=== PATIENT | male | born 1930 | race Caucasian/White ===

== ENCOUNTER 2017-10-29 01:51 | Inpatient (IN) | payer MEDICARE, OTHER ==
[2017-10-29] VITALS (18 sets, daily range): BP systolic 130–159; BP diastolic 83–108; PULSE 89–108; RESP 20–44; TEMP 96.7–98.5; O2SAT 91–100
[~2017-10-29] VITALS: Ht 182.9 cm; Wt 54.1 kg
[~2017-10-29 01:51] MED LIST: COLA100C5 PO; ESCI10TA PO; FAMO20TA2 PO; FLOR250C PO; IBUP200T47 PO; METO1TAB9 PO; NITR1SUB3 SL; OXYB5TAB8 PO; PERC5TAB12 PO; QUET1TAB7 PO; TAMS0.4C4 PO; TAMS5CAP PO; TYLE325T PO
[2017-10-29] MEDS ORDERED: RESP: ALBUTEROL 2.5 MG/IPRATROPIUM 0.5 MG NEB (SCH) INH ONE (02:15)
[2017-10-29] MEDS ORDERED: SODIUM CHLORIDE 0.9% FLUSH 10 ML FLUSH IVF PRN (02:15)
[2017-10-29] MEDS ORDERED: FUROSEMIDE 40 MG/4 ML VIAL IV PUSH ONE ×2 (02:30→07:00)
[2017-10-29 02:35] LABS: AUTOMATED NEUTROPHIL # 12.4 TH/MM3 (1.8-7.7); BASOPHIL % 0.1 % (0.0-2.0); HEMATOCRIT 29.9 % (39.0-51.0); HEMOGLOBIN 9.6 GM/DL (13.0-17.0); LYMPH % 7.3 % (9.0-44.0); MEAN CELL VOLUME 93.7 FL (80.0-100.0); MEAN CORPUSCULAR HGB CONC 32.1 % (32.0-36.0); MEAN PLATELET VOLUME 8.2 FL (7.0-11.0); MONO % 4.4 % (0.0-8.0); MONOCYTE # 0.6 TH/MM3 (0-0.9); NEUT % 88.2 % (16.0-70.0); PLATELET COUNT 202 TH/MM3 (150-450); RED BLOOD COUNT 3.19 MIL/MM3 (4.50-5.90); RED CELL DISTRIBUTION WIDTH 14.6 % (11.6-17.2); WHITE BLOOD COUNT 14.1 TH/MM3 (4.0-11.0)
[2017-10-29 02:41] LABS: AMORPHOUS SEDIMENT, URINE RARE; BACTERIA, URINE MANY /hpf; BILIRUBIN, URINE NEG (NEG); BLOOD, URINE LARGE (NEG); GLUCOSE,URINE NEG (NEG); HYALINE CAST, URINE 9 /lpf (RARE); KETONE, URINE NEG (NEG); NITRITE,URINE NEG (NEG); SQUAMOUS EPITHELIAL CELL URINE 1 /hpf (0-5); URINE COLOR YELLOW (YELLW/STRAW); URINE LEUKOCYTE ESTERASE LARGE (NEG)
--- NOTE | 2017-10-29 02:43 | RADRPT ---
EXAM DATE/TIME: 10/29/2017 02:12 [place] COMPARISON: CHEST SINGLE AP, December 08, 2014, 3:15. INDICATIONS : Shortness of breath. MEDICAL HISTORY : Hypertension. Chronic obstructive pulmonary disease. SURGICAL HISTORY : Cardiac stent. ENCOUNTER: Initial ACUITY: 1 day PAIN SCORE: 0/10 LOCATION: Bilateral chest FINDINGS: The cardiac silhouette is enlarged in transverse diameter. There is baseline fibrotic change with dif fuse right-sided edema versus pneumonia. No pleural effusions are identified. CONCLUSION: 1. Diffuse right-sided edema versus pneumonia superimposed on baseline fibrosis. Leander Adams MD on October 29, 2017 at 2:40 Board Certified Radiologist. This report was verified electronically.
[2017-10-29] MEDS ORDERED: VANCOMYCIN INJ 200 ML IV ONE (02:45)
[2017-10-29] MEDS ORDERED: CEFEPIME INJ 1,000 MG in SODIUM CHLORIDE 0.9% INJ 100 ML IV ONE (02:45)
[2017-10-29 02:50] LABS: ALBUMIN 2.6 GM/DL (3.4-5.0); ALT (GPT) 33 U/L (12-78); AST (GOT) 77 U/L (15-37); BICARBONATE 25.5 MEQ/L (21.0-32.0); BLOOD UREA NITROGEN 33 MG/DL (7-18); CALCIUM 8.5 MG/DL (8.5-10.1); CHLORIDE 113 MEQ/L (98-107); CREATININE 1.28 MG/DL (0.60-1.30); GLOMERULAR FILTRATION RATE 53 ML/MIN (>89); GLUCOSE,RANDOM 149 MG/DL (74-106); SODIUM (NA) 149 MEQ/L (136-145)
[2017-10-29 02:51] LABS: INTERNATIONAL NORMALIZED RATIO 1.3 RATIO; PROTHROMBIN TIME - PATIENT 12.8 SEC (9.8-11.6)
[2017-10-29 02:54] LABS: ALKALINE PHOSPHATASE 98 U/L (45-117); TOTAL PROTEIN 7.5 GM/DL (6.4-8.2)
[2017-10-29 02:59] LABS: TROPONIN I 1.22 NG/ML (0.02-0.05)
[2017-10-29] MEDS ORDERED: ASPIRIN 81 MG CHEW TAB CHEW ONE (03:00)
[2017-10-29] MEDS ORDERED: HEPARIN SODIUM - IV 10,000 UNITS/10 ML VIAL IV PUSH ONE (03:00)
--- NOTE | 2017-10-29 03:03 | PD ---
HPI Chief Complaint: Respiratory Symptoms Time Seen by Provider: 02:02 Travel History International Travel<30 days: No Contact w/Intl Traveler<30days: No Traveled to known affect area: No History of Present Illness HPI Patient is an 86-year-old male who comes in from the care home due to altered mental status for 3 days. Per EMS, the nurse at the care home was unable to provide much history. He says his been feeling short of breath. He denies having any pain. He provides little other history. He has been admitted before for CHF and respiratory issues. PFSH Past Medical History Arthritis: Yes Autoimmune Disease: No Blood Disorders: No Heart Rhythm Problems: No Cancer: No Cardiac Catheterization: Yes (X 4 STENTS) Cardiovascular Problems: Yes (Carries NTG SL, but never used it) High Cholesterol: Yes Chest Pain: No Congestive Heart Failure: No Diabetes: Yes Patient Takes Glucophage: No Endocrine: Yes Gastrointestinal Disorders: Yes GERD: No Genitourinary: No Hepatitis: No Hiatal Hernia: No Hypertension: Yes Immune Disorder: No Kidney Stones: Yes Musculoskeletal: Yes (Osteoarthritis) Neurologic: No Psychiatric: No Reproductive: No Respiratory: No Myocardial Infarction: Yes Renal Failure: No Thyroid Disease: No Ulcer: No Tetanus Vaccination: Unknown Past Surgical History Abdominal Surgery: Yes (Appendectomy) AICD: No Appendectomy: Yes Arteriovenous Shunt: No Cardiac Surgery: Yes (Cardiac stents x4) Insulin Pump: No Joint Replacement: No Pacemaker: No Thoracic Surgery: No Other Surgery: Yes Social History Alcohol Use: Yes (OCC) Tobacco Use: Yes (1/2PPD) Substance Use: No Allergies-Medications (Allergen,Severity, Reaction): Coded Allergies: Sulfa (Sulfonamide Antibiotics) (Unverified Allergy, Severe, Hives, ) buckwheat (Unverified Allergy, Intermediate, HIVES, 10/01/17) Reported Meds & Prescriptions Reported Meds & Active Scripts Active Reported Tylenol (Acetaminophen) 325 Mg Tab 2 Mg PO Q6HR Percocet (Oxycodone-Acetaminophen) 5-325 mg Tab 1 Tab PO Q4H PRN Nitroglycerin SL (Nitroglycerin) 0.4 Mg Subl 0.4 Mg SL DIRECTED PRN ONE TABLET UNDER THE TONGUE NEEDED FOR CHEST PAIN, MAY REPEAT EVERY FIVE MINUTES FOR A TOTAL OF 3 DOSES OR CALL 911 IF NO RELIEF Florastor (Saccharomyces Boulardii) 250 Mg Cap 250 Mg PO TID Ditropan (Oxybutynin Chloride) 5 Mg Tab 5 Mg PO TID Ibuprofen 200 Mg Tab 200 Mg PO TID Colace (Docusate Sodium) 100 Mg Capsule 100 Mg PO BID Tamsulosin (Tamsulosin HCl) 0.4 Mg Cap 0.4 Mg PO HS Flomax (Tamsulosin HCl) 0.4 Mg Cap 2 Tab PO HS Quetiapine (Quetiapine Fumarate) 25 Mg Tab 25 Mg PO HS Escitalopram (Escitalopram Oxalate) 10 Mg Tab 10 Mg PO DAILY Metoprolol Succinate ER 24 HR (Metoprolol Succinate) 50 Mg Tab 50 Mg PO DAILY Famotidine 20 Mg Tab 20 Mg PO BID Review of Systems ROS Limitations: Clinical Condition Physical Exam Narrative GENERAL: Awake and alert, in mild respiratory distress. SKIN: Focused skin assessment warm/dry. HEAD: Atraumatic. Normocephalic. EYES: Pupils equal and round. No scleral icterus. ENT: Mucous membranes pink and moist. NECK: Trachea midline. No JVD. CARDIOVASCULAR: Regular rate and rhythm. No murmur appreciated. RESPIRATORY: Tachypnea. Crackles in the right lung. Breath sounds equal bilaterally. GASTROINTESTINAL: Abdomen soft, non-tender, nondistended. Hepatic and splenic margins not palpable. MUSCULOSKELETAL: No obvious deformities. No clubbing. No cyanosis. No edema. NEUROLOGICAL: Awake and alert. No obvious cranial nerve deficits. Motor grossly within normal limits. Normal speech. PSYCHIATRIC: Appropriate mood and affect; insight and judgment normal. Data Data Last Documented VS Vital Signs Date Time Temp Pulse Resp B/P (MAP) Pulse Ox O2 Delivery O2 Flow Rate FiO2 10/29/17 03:00 104 22 159/90 (113) 98 BiPAP 10/29/17 02:33 15.00 10/29/17 01:57 98.5 Orders Orders Complete Blood Count With Diff (10/29/17 02:03) Comprehensive Metabolic Panel (10/29/17 02:03) B-Type Natriuretic Peptide (10/29/17 02:03) Act Partial Throm Time (Ptt) (10/29/17 02:03) Prothrombin Time / Inr (Pt) (10/29/17 02:03) Troponin I (10/29/17 02:03) Urinalysis - C+S If Indicated (10/29/17 02:03) Influenzae A/B Antigen (10/29/17 02:03) Blood Culture (10/29/17 02:03) Iv Access Insert/Monitor (10/29/17 02:03) Electrocardiogram (10/29/17 02:03) Ecg Monitoring (10/29/17 02:03) Oximetry (10/29/17 02:03) Oxygen Administration (10/29/17 02:03) Chest, Single Ap (10/29/17 02:03) Sodium Chloride 0.9% Flush (Ns Flush) (10/29/17 02:15) Albuterol-Ipratropium Neb (Duoneb Neb) (10/29/17 02:15) Lactic Acid (10/29/17 02:03) Furosemide Inj (Lasix Inj) (10/29/17 02:30) Urine Culture (10/29/17 02:25) Cefepime Inj (Maxipime Inj) (10/29/17 02:45) Vancomycin Inj (Vancomycin Inj) (10/29/17 02:45) Heparin Inj (Heparin Inj) (10/29/17 03:00) Heparin Inj (Heparin Inj) (10/29/17 09:00) Heparin Inj (Heparin Inj) (10/29/17 09:00) Heparin-D5w 25,000 U/250 Ml (Heparin-D5w (10/29/17 03:00) Cbc No Diff, Includes Plts (11/01/17 06:00) Act Partial Throm Time (Ptt) (10/29/17 10:00) Occult Blood (Hemoccult) Stool (10/29/17 03:00) Aspirin Chew (Aspirin Chew) (10/29/17 03:00) Labs Laboratory Tests Test 10/29/17 02:00 10/29/17 02:10 10/29/17 02:25 Lactic Acid Level 2.0 mmol/L White Blood Count 14.1 TH/MM3 Red Blood Count 3.19 MIL/MM3 Hemoglobin 9.6 GM/DL Hematocrit 29.9 % Mean Corpuscular Volume 93.7 FL Mean Corpuscular Hemoglobin 30.0 PG Mean Corpuscular Hemoglobin Concent 32.1 % Red Cell Distribution Width 14.6 % Platelet Count 202 TH/MM3 Mean Platelet Volume 8.2 FL Neutrophils (%) (Auto) 88.2 % Lymphocytes (%) (Auto) 7.3 % Monocytes (%) (Auto) 4.4 % Eosinophils (%) (Auto) 0.0 % Basophils (%) (Auto) 0.1 % Neutrophils # (Auto) 12.4 TH/MM3 Lymphocytes # (Auto) 1.0 TH/MM3 Monocytes # (Auto) 0.6 TH/MM3 Eosinophils # (Auto) 0.0 TH/MM3 Basophils # (Auto) 0.0 TH/MM3 CBC Comment DIFF FINAL Differential Comment Prothrombin Time 12.8 SEC Prothromb Time International Ratio 1.3 RATIO Activated Partial Thromboplast Time 21.0 SEC Blood Urea Nitrogen 33 MG/DL Creatinine 1.28 MG/DL Random Glucose 149 MG/DL Total Protein 7.5 GM/DL Albumin 2.6 GM/DL Calcium Level 8.5 MG/DL Alkaline Phosphatase 98 U/L Aspartate Amino Transf (AST/SGOT) 77 U/L Alanine Aminotransferase (ALT/SGPT) 33 U/L Total Bilirubin 1.0 MG/DL Sodium Level 149 MEQ/L Potassium Level 3.0 MEQ/L Chloride Level 113 MEQ/L Carbon Dioxide Level 25.5 MEQ/L Anion Gap 11 MEQ/L Estimat Glomerular Filtration Rate 53 ML/MIN Troponin I 1.22 NG/ML Urine Color YELLOW Urine Turbidity CLOUDY Urine pH 6.0 Urine Specific [place] 1.018 Urine Protein 100 mg/dL Urine Glucose (UA) NEG mg/dL Urine Ketones NEG mg/dL Urine Occult Blood LARGE Urine Nitrite NEG Urine Bilirubin NEG Urine Urobilinogen LESS THAN 2.0 MG/DL Urine Leukocyte Esterase LARGE Urine RBC 64 /hpf Urine WBC /hpf Urine Squamous Epithelial Cells 1 /hpf Urine Amorphous Sediment RARE Urine Bacteria MANY /hpf Urine Hyaline Casts 9 /lpf Microscopic Urinalysis Comment CULTURE INDICATED MDM Medical Decision Making Medical Screen Exam Complete: Yes Emergency Medical Condition: Yes Medical Record Reviewed: Yes Interpretation(s) ECG shows A. fib at a rate of 103, no ST elevation or depression. Differential Diagnosis Pneumonia versus CHF versus ACS Narrative Course patient is an 86-year-old male brought in from the care home due to altered mental status and shortness of breath. Per EMS his oxygen saturations were in the 70s on room air and only improved on a nonrebreather. Exam shows crackles in the lungs. Patient is to keep neck and has a low oxygen saturation even on nonrebreather. IV established, labs sent. Patient placed on BiPAP with improvement of his breathing and oxygen saturation. Chest x-ray performed shows edema of the right lung versus pneumonia. Patient was given a dose of Lasix. Given antibiotics. Labs show an elevated white blood cell count of 14. Troponin is elevated to 1.22. Patient was given aspirin and started on heparin. He will be admitted for further management. Diagnosis Primary Impression: Diastolic CHF, acute Additional Impressions: HCAP (healthcare-associated pneumonia) NSTEMI (non-ST elevated myocardial infarction) Hypoxia Admitting Information Admitting Physician Requests: Admit Antonieta Krueger MD Oct 29, 2017 03:03
[2017-10-29] MEDS ORDERED: NALOXONE HCL 0.4 MG/ML AMP IV PUSH PRN (03:45)
[2017-10-29] MEDS ORDERED: POTASSIUM CHLORIDE 20 MEQ CONTROLLED RELEASE TAB PO ONE (03:45)
[2017-10-29] MEDS ORDERED: ASPIRIN 300 MG SUPP RECTAL ONE (03:45)
[2017-10-29] MEDS ORDERED: SODIUM CHLORIDE 0.9% FLUSH 10 ML FLUSH IV FLUSH PRN (03:45)
[2017-10-29] MEDS ORDERED: VANCOMYCIN 1,000 MG/NS 250 ML IV ONE ×2 (04:00)
[2017-10-29] MEDS: HEPARIN-D5W 25,000 U/250 ML 250 ML IV PRN (04:07)
--- NOTE | 2017-10-29 04:59 | HHI.HP ---
[facility] Service [facility] Primary Care Physician Fabio Kang MD (Paul) Admission Diagnosis NSTEMI, hypoxia, CHF, pneumonia Diagnoses: Travel History International Travel<30 Days: No Contact w/Intl Traveler <30 Da: No Traveled to Known Affected Are: No History of Present Illness History from patient's POA who is at the bedside, review of medical records, ER physician communication, and group home notes. Patient himself is limited historian as he has underlying dementia. He is also on BiPAP at the time of my exam. POA reported that patient was short of breath all of a sudden at the group home today. Patient was also complaining of chest pain per nursing staff reports to the POA from group home. Apart from the above to, patient denies any other symptoms such as dizziness/ syncopal episodes/nausea/vomiting/diarrhea/black stools or red stools. Denies any urinary symptoms. Reports that his baseline status is with memory impairment due to dementia. But generally is communicative, ambulatory with a walker. Usually eats regular consistency foods. However, in the emergency room, patient was unable to swallow pills. He only has his upper dentures with him. He was also unable to swallow water. Likely because of denture issues. POA at the bedside reported that for the past 2 days though, he has been generally weak and not eating or drinking well. Patient himself denies any odynophagia or dysphagia. Review of Systems ROS Limitations: Poor Historian Except as stated in HPI: all other systems reviewed are Neg Past Family Social History Past Medical History htn dm cad -s /p stent copd not on home oxygen BPH- was talking about getting suprapubic for this week dementia Past Surgical History right shoulder replaced coronary angiogram and stenting Allergies: Coded Allergies: Sulfa (Sulfonamide Antibiotics) (Unverified Allergy, Severe, Hives, ) buckwheat (Unverified Allergy, Intermediate, HIVES, 10/01/17) Family History father- prostate cancer Social History used to smoke like a chimney till may 20, 2017 no etoh or drug abuse has been in NH since middle of may 2017 Physical Exam Vital Signs Vital Signs Date Time Temp Pulse Resp B/P (MAP) Pulse Ox O2 Delivery O2 Flow Rate FiO2 10/29/17 04:32 108 24 151/94 (113) 99 BiPAP 10/29/17 04:10 100 90 10/29/17 03:00 104 22 159/90 (113) 98 BiPAP 10/29/17 02:40 100 100 10/29/17 02:33 99 Non-Rebreather 15.00 10/29/17 02:33 99 Non-Rebreather 15.00 10/29/17 02:15 96 Non-Rebreather 15.00 10/29/17 01:57 98.5 106 26 138/108 (118) 98 Physical Exam GENERAL: This is thin elderly gentleman on bipap, tried to talk, in moderate distress from dyspnea SKIN: No rashes, ecchymoses or lesions. Cool and dry. HEAD: Atraumatic. Normocephalic. No temporal or scalp tenderness. EYES: No scleral icterus. No injection or drainage. ENT: Nose without bleeding, purulent drainage or septal hematoma Airway patent. NECK: Trachea midline. No JVD. Supple, nontender, no meningeal signs. CARDIOVASCULAR: Regular rate and rhythm without murmurs, gallops, or rubs. RESPIRATORY: bilateral rales, equal air entry GASTROINTESTINAL: Abdomen soft, non-tender, nondistended. No guarding. MUSCULOSKELETAL: Extremities without clubbing, cyanosis, or edema. No calf tenderness. NEUROLOGICAL: Awake and alert though have dementia and cannot answer much in detail Motor and sensory grossly within normal limits. Normal speech. Laboratory Laboratory Tests Test 10/29/17 02:00 10/29/17 02:10 10/29/17 02:25 Lactic Acid Level 2.0 White Blood Count 14.1 Red Blood Count 3.19 Hemoglobin 9.6 Hematocrit 29.9 Mean Corpuscular Volume 93.7 Mean Corpuscular Hemoglobin 30.0 Mean Corpuscular Hemoglobin Concent 32.1 Red Cell Distribution Width 14.6 Platelet Count 202 Mean Platelet Volume 8.2 Neutrophils (%) (Auto) 88.2 Lymphocytes (%) (Auto) 7.3 Monocytes (%) (Auto) 4.4 Eosinophils (%) (Auto) 0.0 Basophils (%) (Auto) 0.1 Neutrophils # (Auto) 12.4 Lymphocytes # (Auto) 1.0 Monocytes # (Auto) 0.6 Eosinophils # (Auto) 0.0 Basophils # (Auto) 0.0 CBC Comment DIFF FINAL Differential Comment Prothrombin Time 12.8 Prothromb Time International Ratio 1.3 Activated Partial Thromboplast Time 21.0 Blood Urea Nitrogen 33 Creatinine 1.28 Random Glucose 149 Total Protein 7.5 Albumin 2.6 Calcium Level 8.5 Alkaline Phosphatase 98 Aspartate Amino Transf (AST/SGOT) 77 Alanine Aminotransferase (ALT/SGPT) 33 Total Bilirubin 1.0 Sodium Level 149 Potassium Level 3.0 Chloride Level 113 Carbon Dioxide Level 25.5 Anion Gap 11 Estimat Glomerular Filtration Rate 53 Troponin I 1.22 B-Type Natriuretic Peptide 1708 Urine Color YELLOW Urine Turbidity CLOUDY Urine pH 6.0 Urine Specific [place] 1.018 Urine Protein 100 Urine Glucose (UA) NEG Urine Ketones NEG Urine Occult Blood LARGE Urine Nitrite NEG Urine Bilirubin NEG Urine Urobilinogen LESS THAN 2.0 Urine Leukocyte Esterase LARGE Urine RBC 64 Urine WBC Urine Squamous Epithelial Cells 1 Urine Amorphous Sediment RARE Urine Bacteria MANY Urine Hyaline Casts 9 Microscopic Urinalysis Comment CULTURE INDICATED Date/Time Source Procedure Growth Status 10/29/17 02:20 Blood Peripheral Aerobic Blood Culture Pending Received 10/29/17 02:20 Blood Peripheral Anaerobic Blood Culture Pending Received 10/29/17 02:23 Nasal Washing Influenza Types A,B Antigen (SUZY) - Final NEGATIVE FOR FLU A AND B ANTIGEN.... Complete 10/29/17 02:25 Urine Random Urine Urine Culture Pending Received Result Diagram: 10/29/17 0210 10/29/17 0210 Imaging Last 48 hours Impressions Chest X-Ray 10/29/17 0203 Signed Impressions: Service Date/Time: Sunday, October 29, 2017 02:12 - CONCLUSION: 1. Diffuse right-sided edema versus pneumonia superimposed on baseline fibrosis. Leander Adams MD Capshyami VTE Risk Assessment Caprini VTE Risk Assessment: Mod/High Risk (score >= 2) Caprini Risk Assessment Model Point Value = 1 Point Value = 2 Point Value = 3 Point Value = 5 Age 41-60 Minor surgery BMI > 25 kg/m2 Swollen legs Varicose veins or History of unexplained or recurrent spontaneous Oral contraceptives or hormone replacement Sepsis (< 1 month) Serious lung disease, including pneumonia (< 1 month) Abnormal pulmonary function Acute myocardial infarction Congestive heart failure (< 1 month) History of inflammatory bowel disease Medical patient at bed rest Age 61-74 Arthroscopic surgery Major open surgery (> 45 min) Laparoscopic surgery (> 45 min) Malignancy Confined to bed (> 72 hours) Immobilizing plaster cast Central venous access Age >= 75 History of VTE Family history of VTE Factor V Leiden Prothrombin [id number] Lupus anticoagulant Anticardiolipin antibodies Elevated serum homocysteine Heparin-induced thrombocytopenia Other congenital or acquired thrombophilia Stroke (< 1 month) Elective arthroplasty Hip, pelvis, or leg fracture Acute spinal cord injury (< 1 month) Prophylaxis Regimen Total Risk Factor Score Risk Level Prophylaxis Regimen 0-1 Low Early ambulation 2 Moderate Order ONE of the following: *Sequential Compression Device (SCD) *Heparin 5000 units SQ BID 3-4 Higher Order ONE of the following medications: *Heparin 5000 units SQ TID *Enoxaparin/Lovenox 40 mg SQ daily (WT < 150 kg, CrCl > 30 mL/min) *Enoxaparin/Lovenox 30 mg SQ daily (WT < 150 kg, CrCl > 10-29 mL/min) *Enoxaparin/Lovenox 30 mg SQ BID (WT < 150 kg, CrCl > 30 mL/min) AND/OR *Sequential Compression Device (SCD) 5 or more Highest Order ONE of the following medications: *Heparin 5000 units SQ TID (Preferred with Epidurals) *Enoxaparin/Lovenox 40 mg SQ daily (WT < 150 kg, CrCl > 30 mL/min) *Enoxaparin/Lovenox 30 mg SQ daily (WT < 150 kg, CrCl > 10-29 mL/min) *Enoxaparin/Lovenox 30 mg SQ BID (WT < 150 kg, CrCl > 30 mL/min) AND *Sequential Compression Device (SCD) Assessment and Plan Assessment and Plan Impression: acute hypoxemic respiratory failure 70% on RA acute on chronic diastolic heart failure NSTEMI Abnormal chest x-ray findings. Pulmonary edema versus infiltrate per radiologist. leukocytosis with left shift hypokalemia indwelling tai due to BPH- with UTI htn dm cad -s /p stent CHF. Echo in 2014 showing grade 3 diastolic heart failure. copd not on home oxygen BPH- was talking about getting suprapubic for this week dementia Plan: Lasix 40 mg IV 1 dose was given in ER. Replace potassium 40 mEq IV 1 dose now. Continue Lasix at 40 mg IV every 12 hours. Echocardiogram. Telemetry monitoring. Cardiology consult. Serial cardiac enzymes and EKGs. Swallow evaluation. Patient received cefepime in ER. Discontinue vancomycin. Patient does not look septic. Moreover, IV antibiotics administration will worsen his CHF. may need further diuresis Levofloxacin 750 mg by mouth daily. We'll follow urine culture results. Nursing to check on swallow evaluation of the patient before given pills. However I believe that patient can take pills crushed in applesauce. Resume home meds. Holding sedatives now. admit to ICU DVT prophylaxis with heparin. GI prophylaxis on pantoprazole. critical care time 40min Code Status DNR/DNI Patient has [facility] DNR papers. Verified with POA/healthcare surrogate. Discussed Condition With patient, POA, ER Physician Certification 2 Midnight Certification Type: Admission for Inpatient Services Order for Inpatient Services The services are ordered in accordance with Medicare regulations or non- Medicare payer requirements, as applicable. In the case of services not specified as inpatient-only, they are appropriately provided as inpatient services in accordance with the 2-midnight benchmark. Estimated LOS (days): 4 days is the estimated time the patient will need to remain in the hospital, assuming treatment plan goals are met and no additional complications. Post-Hospital Plan: [facility] Gamal Hansen MD Oct 29, 2017 04:59
[2017-10-29] MEDS ORDERED: MORPHINE SULFATE 2 MG/ML INJ IV PUSH ONE (07:00)
[2017-10-29] MEDS: POTASSIUM CHLOR 20 MEQ PREMIX 100 ML IV SCH ×2 (08:07→09:39)
[2017-10-29] MEDS: DOCUSATE SODIUM 100 MG CAP PO SCH ×2 (08:08→20:58)
[2017-10-29] MEDS: SODIUM CHLORIDE 0.9% FLUSH 10 ML FLUSH IV FLUSH SCH ×2 (08:08→21:00)
[2017-10-29] MEDS: ASPIRIN EC 325 MG TABEC PO SCH (09:00)
[2017-10-29] MEDS: OXYBUTYNIN CHLORIDE 5 MG TAB PO SCH ×3 (09:00→17:38)
[2017-10-29] MEDS: FAMOTIDINE 20 MG TAB PO SCH ×2 (09:00→20:58)
[2017-10-29] MEDS ORDERED: HEPARIN SODIUM - IV 10,000 UNITS/10 ML VIAL IV PUSH PRN ×2 (09:00)
[2017-10-29] MEDS ORDERED: LEVOFLOXACIN 750 MG TAB PO SCH (09:00)
[2017-10-29] MEDS: ESCITALOPRAM OXALATE 10 MG TAB PO SCH (09:00)
[2017-10-29] MEDS: METOPROLOL SUCCINATE 50 MG EXTENDED RELEASE TAB PO SCH (09:00)
[2017-10-29] MEDS: FUROSEMIDE 40 MG/4 ML VIAL IV PUSH SCH ×2 (11:28→17:38)
[2017-10-29 11:56] LABS: TROPONIN I 3.28 NG/ML (0.02-0.05)
--- NOTE | 2017-10-29 14:25 | HHI.PR ---
Subjective Remarks Late entry. Patient seen at approximately 0800 this morning. Follow-up respiratory failure, non-ST elevation LA. Patient reports shortness of breath. He is on BiPAP. Denies chest pain. Objective Vitals Vital Signs Date Time Temp Pulse Resp B/P (MAP) Pulse Ox O2 Delivery O2 Flow Rate FiO2 10/29/17 12:17 93 30 10/29/17 08:22 98 50 10/29/17 05:46 10/29/17 05:45 98.5 108 44 130/85 (100) 95 10/29/17 05:44 95 80 10/29/17 04:32 108 24 151/94 (113) 99 BiPAP 10/29/17 04:10 100 90 10/29/17 03:00 104 22 159/90 (113) 98 BiPAP 10/29/17 02:40 100 100 10/29/17 02:33 99 Non-Rebreather 15.00 10/29/17 02:33 99 Non-Rebreather 15.00 10/29/17 02:15 96 Non-Rebreather 15.00 10/29/17 01:57 98.5 106 26 138/108 (118) 98 I/O 10/28/17 10/28/17 10/28/17 10/29/17 10/29/17 10/29/17 07:00 15:00 23:00 07:00 15:00 23:00 Intake Total 225 ml 100 ml Output Total 900 ml Balance -675 ml 100 ml Intake IV Total 225 ml 100 ml Output Urine Total 900 ml Result Diagram: 10/29/1720910/29/17209 Imaging Last Impressions Chest X-Ray 10/29/17202 Signed Impressions: Service Date/Time: Sunday, October 29, 2017 02:12 - CONCLUSION: 1. Diffuse right-sided edema versus pneumonia superimposed on baseline fibrosis. Leander Adams MD Objective Remarks General: Elderly male. On BiPAP. Heart: Regular rate and rhythm. No murmur. Lungs: Crackles noted bilaterally. Breathing is nonlabored. Abdomen: Soft, nontender, nondistended. Extremities: No lower extremity edema. Psych: Alert, confused. Urinary Catheter: Yes Assessment to: Continue Neal insert reason: Obstruction/Retention Vascular Central Line Catheter: No A/P Assessment and Plan 1. Acute hypoxemic respiratory failure: Patient requiring BiPAP. Continue bronchodilators. Continue IV Lasix. 2. Non-ST elevation LA: Troponin trending up. Cardiology consult is pending. 3. Acute on chronic diastolic congestive heart failure: Continue diuresis, supplemental oxygen. 4. UTI: Continue Levaquin, changed to IV as patient is not tolerating anything by mouth. 5. Possible pneumonia: Continue Levaquin. 6. Hospice consult requested by patient's power of attorney recruiter. 7. CODE STATUS: DO NOT RESUSCITATE/DO NOT INTUBATE Branden Montiel MD Oct 29, 2017 14:25
[2017-10-29] MEDS ORDERED: LEVOFLOXACIN 750 MG PREMIX INJ 150 ML IV SCH (15:00)
[2017-10-29] MEDS: MORPHINE SULFATE 2 MG/ML INJ IV PUSH PRN ×2 (15:03→21:00)
[2017-10-29 17:37] LABS: TROPONIN I 3.75 NG/ML (0.02-0.05)
--- NOTE | 2017-10-29 19:50 | MB ---
cc: BELINDA RINCON M.D. DATE OF CONSULTATION 10/29/2017 HISTORY OF THE PRESENT ILLNESS Lawrence is a very pleasant 86-year-old gentleman currently on BiPap residing in a residential brought in to the ER due to altered mental status for three days prior to admission. History is unable to be obtained from the patient. Also notes to be short of breath. Currently he is on BiPAP, gives very little history. He and his family decided to be placed on hospice, consult has been placed. Apparently they had been considering Hospice prior to admission. Currently he denies chest pain, fevers, chills, cough, GI or bleeding, paroxysmal nocturnal dyspnea, orthopnea, syncope or dizziness. PAST MEDICAL HISTORY Per history of present illness. 1. He has a history of coronary artery disease status post PCI x4. 2. Hyperlipidemia. 3. Diabetes. 4. "Gastrointestinal disorders". 5. Hypertension. 6. Osteoarthritis. 7. Nephrolithiasis. 8. History of myocardial infarction. 9. Appendectomy. SOCIAL HISTORY He smokes half-pack cigarettes a day. Drinks alcohol occasionally. ALLERGIES SULFA AND BARROW WHEAT. MEDICATIONS Prior to admission: 1. Percocet. 2. Nitroglycerine. 3. Florastor. 4. Ditropan. 5. Ibuprofen. 6. Colace. 7. Tamsulosin. 8. Flomax. 9. Citalopram oxalate. 10. Metoprolol extended release 50 daily. 11. Famotidine 20 milligrams b.i.d. Medications in the hospital currently: 12. Seroquel. 13. Flomax. 14. Levofloxacin. 15. As needed morphine. 16. Heparin bolus and drip started in the ER. 17. Lasix 40 IV b.i.d. 18. Docusate 100 twice a day. 19. Lexapro 10 daily. 20. Pepcid 20 b.i.d. 21. Metoprolol XL 50 daily. 22. Aspirin 325 daily. PHYSICAL EXAMINATION VITAL SIGNS: Blood pressure 130/85, respiratory rate ranging between 24 and 44, pulse 108, temperature 98.5, sats 93% on 30% oxygen. GENERAL: He is on BiPap. He is in no acute distress. He appears comfortable. NECK: Supple. No JVD or bruits. CARDIOVASCULAR: Normal S1-S2. No murmurs, rubs, or gallops. LUNGS: Notable for decreased breath sounds right greater than left. ABDOMEN: Soft and nontender, nondistended with positive bowel sounds. EXTREMITIES: No lower extremity edema. IMAGING Chest x-ray shows diffuse right-sided edema versus pneumonia superimposed on baseline fibrosis. His EKG A fib rate of 103 beats per minute, aberrantly conducted PACs versus PVCs, LVH, anteroseptal Q-waves. LABORATORY DATA White count 14.1, hemoglobin 9.6, hematocrit 29.9, platelet count 202. The initial troponin is 1.22, second troponin 3.28. BNP is 1708. Sodium 149, potassium 3.0, chloride 113, bicarb 25.5, BUN 33, creatinine 1.28, glucose 149, AST is 77. INR is 1.3. He has the following diagnoses: DIAGNOSES 1. Non-ST elevation myocardial infarction. 2. Decompensated congestive heart failure. 3. Pneumonia. 4. Hypernatremia. 5. Hypokalemia. 6. Hyperglycemia. 7. COPD. 8. Respiratory failure 9. Anemia. 10. Elevated white count. 11. Tobacco use. 12. Elevated liver enzymes. DISCUSSION The patient appears to be on optimal medical therapy. However, he is not a statin. However, he had his family decided put him on hospice. I had a long talk with a nurse at the bedside with the patient and his daughter, explained that if they were to change their mind we could consider cath and PCI. I told him it is indeterminate whether this would significantly improve the patient's clinical status, I certainly informed that I could not rule that out as it is possible. Currently at this point in time they are planning to proceed with hospice placement. MD EMILIANO Leon/KK /3:44 PM /7:15 PM
[2017-10-29] MEDS ORDERED: QUEtiapine FUMARATE 25 MG TAB PO SCH (21:00)
[2017-10-29] MEDS ORDERED: TAMSULOSIN HCL 0.4 MG CAP PO SCH (21:00)
--- NOTE | 2017-10-29 21:06 | EKG ---
Date Performed: 10/29/2017 Time Performed: 06:56:23 PTAGE: 86 years EKG: SINUS TACHYCARDIA WITH OCCASIONAL SUPRAVENTRICULAR PREMATURE COMPLEXES LEFT ANTERIOR FASCIC ULAR BLOCK LEFT VENTRICULAR HYPERTROPHY AND ST-T CHANGE POSSIBLE SEPTAL MYOCARDIAL INFARCTION , PROBA MAYA OLD ABNORMAL ECG Compared to prior tracing no significant change PREVIOUS TRACING : 10/29/2017 03.02 DOCTOR: Ghislaine Redding Interpretating Date/Time 10/29/2017 21:06:39
--- NOTE | 2017-10-29 21:19 | EKG ---
Date Performed: 10/29/2017 Time Performed: 03:02:34 PTAGE: 86 years EKG: ATRIAL FIBRILLATION WITH RAPID VENTRICULAR RESPONSE WITH ABERRANT CONDUCTION OR VENTRICULAR PREMATURE COMPLEXES LEFT ANTERIOR FASCICULAR BLOCK MINIMAL VOLTAGE CRITERIA FOR LVH, CONSIDER NORMAL VARIANT SEPTAL MYOCARDIAL INFARCTION ABNORMAL ECG Compared to prior tracing no significant change PREVIOUS TRACING : 12/04/2014 04.37 DOCTOR: Ghislaine Redding Interpretating Date/Time 10/29/2017 21:19:03
--- NOTE | 2017-10-29 22:19 | EKG ---
Date Performed: 10/29/2017 Time Performed: 13:41:35 PTAGE: 86 years EKG: ATRIAL FIBRILLATION WITH RAPID VENTRICULAR RESPONSE VS Sinus rhythm WITH VERY FREQUENT PACS LEFT ANTERIOR FASCICULAR BLOCK MODERATE VOLTAGE CRITERIA FOR LVH, CONSIDER N ORMAL VARIANT POSSIBLE ANTEROSEPTAL MYOCARDIAL INFARCTION , OF INDETERMINATE AGE ABNORMAL ECG Compare d to prior tracing no significant change PREVIOUS TRACING : 10/29/2017 06.56 DOCTOR: Ghislaine Redding Interpretating Date/Time 10/29/2017 22:18:47
[2017-10-30] VITALS (13 sets, daily range): BP systolic 149–172; BP diastolic 78–86; PULSE 75–98; RESP 14–30; TEMP 97.5–98.2; O2SAT 92–100
[2017-10-30] MEDS: HEPARIN-D5W 25,000 U/250 ML 250 ML IV PRN (06:24)
[2017-10-30 06:28] LABS: HEMATOCRIT 33.1 % (39.0-51.0); HEMOGLOBIN 10.8 GM/DL (13.0-17.0); MEAN CELL VOLUME 94.3 FL (80.0-100.0); MEAN CORPUSCULAR HEMOGLOBIN 30.8 PG (27.0-34.0); MEAN CORPUSCULAR HGB CONC 32.6 % (32.0-36.0); RED BLOOD COUNT 3.51 MIL/MM3 (4.50-5.90)
[2017-10-30 06:29] LABS: AUTOMATED NEUTROPHIL # 9.7 TH/MM3 (1.8-7.7); BASOPHIL % 0.3 % (0.0-2.0); EOSINOPHIL % 0.1 % (0.0-4.0); LYMPHOCYTE # 0.9 TH/MM3 (1.0-4.8); MEAN PLATELET VOLUME 8.8 FL (7.0-11.0); MONO % 3.9 % (0.0-8.0); MONOCYTE # 0.4 TH/MM3 (0-0.9); NEUT % 87.7 % (16.0-70.0); PLATELET COUNT 192 TH/MM3 (150-450); RED CELL DISTRIBUTION WIDTH 14.9 % (11.6-17.2)
[2017-10-30 07:18] LABS: BICARBONATE 28.7 MEQ/L (21.0-32.0); CALCIUM 8.7 MG/DL (8.5-10.1); CREATININE 1.21 MG/DL (0.60-1.30)
[2017-10-30] MEDS: POTASSIUM CHLOR 20 MEQ PREMIX 100 ML IV SCH ×2 (08:24→12:09)
[2017-10-30] MEDS: SODIUM CHLORIDE 0.9% FLUSH 10 ML FLUSH IV FLUSH SCH (08:24)
[2017-10-30] MEDS: FUROSEMIDE 40 MG/4 ML VIAL IV PUSH SCH (08:24)
[2017-10-30] MEDS: DOCUSATE SODIUM 100 MG CAP PO SCH (08:25)
[2017-10-30] MEDS: METOPROLOL SUCCINATE 50 MG EXTENDED RELEASE TAB PO SCH (08:25)
[2017-10-30] MEDS: OXYBUTYNIN CHLORIDE 5 MG TAB PO SCH ×3 (08:25→17:15)
[2017-10-30] MEDS: ASPIRIN EC 325 MG TABEC PO SCH (08:25)
[2017-10-30] MEDS: FAMOTIDINE 20 MG TAB PO SCH (08:25)
[2017-10-30] MEDS: ESCITALOPRAM OXALATE 10 MG TAB PO SCH (08:25)
--- NOTE | 2017-10-30 09:26 | HHI.PR ---
Subjective Remarks Follow up respiratory failure, hypokalemia. Patient still on BiPAP. No events reported by nursing. Patient awakens to verbal stimuli. Objective Vitals Vital Signs Date Time Temp Pulse Resp B/P (MAP) Pulse Ox O2 Delivery O2 Flow Rate FiO2 10/30/17 08:00 97.5 88 14 158/86 (110) 100 10/30/17 08:00 90 10/30/17 07:00 100 Bi-Pap 10/30/17 06:00 80 10/30/17 04:00 86 10/30/17 04:00 98.0 86 14 160/81 (107) 100 10/30/17 03:24 97 30 10/30/17 02:00 84 10/30/17 00:00 97.5 84 19 172/81 (111) 99 10/30/17 00:00 84 10/29/17 23:55 94 30 10/29/17 22:00 96 10/29/17 21:05 30 10/29/17 21:02 95 30 10/29/17 20:00 98.2 98 30 149/83 (105) 92 10/29/17 20:00 98 10/29/17 19:00 90 Bi-Pap 10/29/17 16:00 97.5 89 28 147/93 (111) 92 10/29/17 12:17 93 30 10/29/17 12:00 96.7 89 20 136/99 (111) 91 I/O 10/29/17 10/29/17 10/29/17 10/30/17 10/30/17 10/30/17 07:00 15:00 23:00 07:00 15:00 23:00 Intake Total 225 ml 200 ml 150 ml 250 ml Output Total 900 ml 2500 ml 1100 ml Balance -675 ml 200 ml -2350 ml -850 ml Intake Oral 0 ml 0 ml IV Total 225 ml 200 ml 150 ml 250 ml Output Urine Total 900 ml 2500 ml 1100 ml # Bowel Movements 0 0 Result Diagram: 10/30/1755 10/30/17554 Imaging Last Impressions Chest X-Ray 10/29/17202 Signed Impressions: Service Date/Time: Sunday, October 29, 2017 02:12 - CONCLUSION: 1. Diffuse right-sided edema versus pneumonia superimposed on baseline fibrosis. Leander Adams MD Objective Remarks General: Elderly male. On BiPAP. Heart: Regular rate and rhythm. No murmur. Lungs: Diminished breath sounds bilaterally. No crackles noted. Breathing is nonlabored. Abdomen: Soft, nontender, nondistended. Extremities: No lower extremity edema. Psych: Sleeping but awakens easily; confused. Procedures None Urinary Catheter: Yes Assessment to: Continue Tai insert reason: Obstruction/Retention Vascular Central Line Catheter: No A/P Assessment and Plan 1. Acute hypoxemic respiratory failure: Patient requiring BiPAP. Continue bronchodilators. No signs of fluid overload at this time. Stop Lasix. 2. Non-ST elevation DC: Troponin trending up. Appreciate cardiology recommendations. Continue medical management. May do cath if family chooses aggressive treatment. 3. Acute on chronic diastolic congestive heart failure: Improved. No fluid overload apparent at this time. Will be cautious with IV fluids. 4. UTI due to indwelling tai catheter, present on admission: Continue Levaquin , changed to IV as patient is not tolerating anything by mouth. Urine culture is pending. 5. Possible pneumonia: Continue Levaquin. 6. Hospice consult requested by patient's power of hospice volunteer coordinator. 7. CODE STATUS: DO NOT RESUSCITATE/DO NOT INTUBATE Discharge Planning Hospice consult is pending. Branden Montiel MD Oct 30, 2017 09:26
[2017-10-30] MEDS ORDERED: NS + KCL 20 MEQ INJ 1,000 ML IV SCH (09:30)
[2017-10-30] MEDS: METOPROLOL TARTRATE 5 MG/5 ML VIAL IV PUSH SCH ×2 (12:08→17:15)
--- NOTE | 2017-10-30 16:28 | HHI.DCPOC ---
Discharge Care Plan Diagnosis: (1) Diastolic CHF, acute (2) NSTEMI (non-ST elevated myocardial infarction) (3) Hypoxia (4) Respiratory failure, acute Goals to Promote Your Health * To prevent worsening of your condition and complications * To maintain your health at the optimal level Directions to Meet Your Goals Take your medications as prescribed Follow your dietary instruction Follow activity as directed Keep your appointments as scheduled Take your immunizations and boosters as scheduled If your symptoms worsen call your PCP, if no PCP go to Urgent Care Center or Emergency Room Smoking is Dangerous to Your Health. Avoid second hand smoke Call the 24-hour hour crisis hotline for domestic abuse at Branden Montiel MD Oct 30, 2017 16:28
--- NOTE | 2017-10-30 17:05 | PD.CARD.PN ---
Subjective Subjective Remarks alert in nad Objective Medications Current Medications Medications (Trade) Dose Ordered Sig/Keron Route Start Time Stop Time Status Last Admin (Heparin Inj) 5,000 units UNSCH PRN IV PUSH 10/29/17 09:00 10/29/17 11:28 (Heparin Inj) 2,500 units UNSCH PRN IV PUSH 10/29/17 09:00 Heparin Sodium/ Dextrose 250 ml @ 7 mls/hr TITRATE PRN IV 10/29/17 03:00 10/30/17 06:24 (NS Flush) 2 ml UNSCH PRN IV FLUSH 10/29/17 03:45 (NS Flush) 2 ml BID IV FLUSH 10/29/17 09:00 10/30/17 08:24 (Narcan Inj) 0.4 mg UNSCH PRN IV PUSH 10/29/17 03:45 (Colace) 100 mg BID PO 10/29/17 09:00 (Lexapro) 10 mg DAILY PO 10/29/17 09:00 (Pepcid) 20 mg BID PO 10/29/17 09:00 (Toprol Xl) 50 mg DAILY PO 10/29/17 09:00 (Ditropan) 5 mg TID PO 10/29/17 09:00 (SEROquel) 25 mg HS PO 10/29/17 21:00 (Flomax) 0.8 mg HS PO 10/29/17 21:00 (Ecotrin Ec) 325 mg DAILY PO 10/29/17 09:00 (Morphine Inj) 2 mg Q4H PRN IV PUSH 10/29/17 14:30 10/29/17 21:00 Potassium Chloride/Sodium Chloride 1,000 ml @ 50 mls/hr Q20H IV 10/30/17 09:30 10/30/17 12:08 (Lopressor Inj) 1.25 mg Q6H IV PUSH 10/30/17 10:00 10/30/17 12:08 Levofloxacin/ Dextrose 150 ml @ 100 mls/hr Q48H IV 10/31/17 15:00 Vital Signs / I&O Vital Signs Date Time Temp Pulse Resp B/P (MAP) Pulse Ox O2 Delivery O2 Flow Rate FiO2 10/30/17 14:00 96 10/30/17 12:00 78 10/30/17 12:00 97.8 79 20 149/78 (101) 100 10/30/17 10:35 100 Nasal Cannula 4.00 10/30/17 10:31 100 30 10/30/17 10:00 90 10/30/17 08:00 97.5 88 14 158/86 (110) 100 10/30/17 08:00 90 10/30/17 07:00 100 Bi-Pap 10/30/17 06:00 80 10/30/17 04:00 86 10/30/17 04:00 98.0 86 14 160/81 (107) 100 10/30/17 03:24 97 30 10/30/17 02:00 84 10/30/17 00:00 97.5 84 19 172/81 (111) 99 10/30/17 00:00 84 10/29/17 23:55 94 30 10/29/17 22:00 96 10/29/17 21:05 30 10/29/17 21:02 95 30 10/29/17 20:00 98.2 98 30 149/83 (105) 92 10/29/17 20:00 98 10/29/17 19:00 90 Bi-Pap I/O 10/29/17 10/29/17 10/29/17 10/30/17 10/30/17 10/30/17 07:00 15:00 23:00 07:00 15:00 23:00 Intake Total 225 ml 200 ml 150 ml 250 ml Output Total 900 ml 2500 ml 1100 ml Balance -675 ml 200 ml -2350 ml -850 ml Intake Oral 0 ml 0 ml IV Total 225 ml 200 ml 150 ml 250 ml Output Urine Total 900 ml 2500 ml 1100 ml # Bowel Movements 0 0 Physical Exam GENERAL: SKIN: Warm and dry. HEAD: Normocephalic. EYES: No scleral icterus. No injection or drainage. NECK: Supple, trachea midline. No JVD or lymphadenopathy. CARDIOVASCULAR: Regular rate and rhythm without murmurs, gallops, or rubs. RESPIRATORY: Breath sounds equal bilaterally. No accessory muscle use. GASTROINTESTINAL: Abdomen soft, non-tender, nondistended. MUSCULOSKELETAL: No cyanosis, or edema. BACK: Nontender without obvious deformity. No CVA tenderness. Laboratory Laboratory Tests Test 10/29/17 18:53 10/30/17 05:55 10/30/17 08:00 Activated Partial Thromboplast Time 27.7 SEC 29.6 SEC White Blood Count 11.0 TH/MM3 Red Blood Count 3.51 MIL/MM3 Hemoglobin 10.8 GM/DL Hematocrit 33.1 % Mean Corpuscular Volume 94.3 FL Mean Corpuscular Hemoglobin 30.8 PG Mean Corpuscular Hemoglobin Concent 32.6 % Red Cell Distribution Width 14.9 % Platelet Count 192 TH/MM3 Mean Platelet Volume 8.8 FL Neutrophils (%) (Auto) 87.7 % Lymphocytes (%) (Auto) 8.0 % Monocytes (%) (Auto) 3.9 % Eosinophils (%) (Auto) 0.1 % Basophils (%) (Auto) 0.3 % Neutrophils # (Auto) 9.7 TH/MM3 Lymphocytes # (Auto) 0.9 TH/MM3 Monocytes # (Auto) 0.4 TH/MM3 Eosinophils # (Auto) 0.0 TH/MM3 Basophils # (Auto) 0.0 TH/MM3 CBC Comment DIFF FINAL Differential Comment Blood Urea Nitrogen 37 MG/DL Creatinine 1.21 MG/DL Random Glucose 147 MG/DL Calcium Level 8.7 MG/DL Sodium Level 153 MEQ/L Potassium Level 2.9 MEQ/L Chloride Level 115 MEQ/L Carbon Dioxide Level 28.7 MEQ/L Anion Gap 9 MEQ/L Estimat Glomerular Filtration Rate 57 ML/MIN Magnesium Level 2.2 MG/DL Assessment and Plan Problem List: (1) NSTEMI (non-ST elevated myocardial infarction) ICD Codes: I21.4 - Non-ST elevation (NSTEMI) myocardial infarction Status: Acute Assessment and Plan 1.) NSTEMI - appears comfortable, family and patient have requested hospice, plan is pravin transfer back to [place]; i have explained that patient can be seen by me as outpatient in my office if he desires Jerson Lisa MD Oct 30, 2017 17:05
[2017-10-31] MEDS ORDERED: LEVOFLOXACIN 750 MG PREMIX INJ 150 ML IV SCH (15:00)
== END 2017-10-30 19:08 | disposition hospice, inpatient (51) | DRG 280 ==
LOC: NEPC 01:51 → NEDA 03:38 → N03B 05:24
PROVIDERS: ADMIT Family Medicine; ATTEND Family Medicine
PROC: 5A09457 Assistance with Respiratory Ventilation, 24-96 Consecutive Hours, Continuous Positive Airway Pressure (ICD-10-PCS; principal; 2017-10-29)
DX: I21.4 Non-ST elevation (NSTEMI) myocardial infarction (principal); J96.01 Acute respiratory failure with hypoxia; I50.33 Acute on chronic diastolic (congestive) heart failure; J18.9 Pneumonia, unspecified organism; I11.0 Hypertensive heart disease with heart failure; F03.90 Unspecified dementia, unspecified severity, without behavioral disturbance, psychotic disturbance, mood disturbance, and anxiety; J44.0 Chronic obstructive pulmonary disease with (acute) lower respiratory infection; E11.65 Type 2 diabetes mellitus with hyperglycemia; N39.0 Urinary tract infection, site not specified; T83.511A Infection and inflammatory reaction due to indwelling urethral catheter, initial encounter; N40.0 Benign prostatic hyperplasia without lower urinary tract symptoms; E87.6 Hypokalemia; I25.10 Atherosclerotic heart disease of native coronary artery without angina pectoris; Z95.5 Presence of coronary angioplasty implant and graft; Z66 Do not resuscitate; Z51.5 Encounter for palliative care; E78.5 Hyperlipidemia, unspecified; Z96.611 Presence of right artificial shoulder joint; Z87.891 Personal history of nicotine dependence
CPT/HCPCS: 71045; 80048; 80053; 81001; 82550; 82552; 83605; 83735; 83880; 84132; 84484; 85025; 85610; 85730; 87040; 87086; 87641; 87804; 93005; 94002; 94003; 94664; 96365; 96375; J0692; J1644; J1940; J1956; J2270; J3370; J3480; J7050